=== PATIENT | male | born 1960 | race Caucasian/White ===

== ENCOUNTER → 2023-11-02 | Outpatient (CLI) | payer BC | END | disposition home or self-care (01) | LOC: EDBD 09-20 15:30 → SHCH 08:07 | PROVIDERS: ATTEND Internal Medicine Cardiovascular Disease | DX: I08.0 Rheumatic disorders of both mitral and aortic valves (principal); R01.1 Cardiac murmur, unspecified | CPT/HCPCS: 93306 ==

== ENCOUNTER → 2024-10-06 | Outpatient (CLI) | payer BC ==
[2024-10-06 12:18] LABS: BASOPHILS # (AUTO) 0.05 K/uL (0.00-0.20); BASOPHILS % (AUTO) 0.5 % (0.0-5.0); EOSINOPHILS % (AUTO) 2.1 % (0.0-8.0); IMMATURE GRANULOCYTE ABSOLUTE 0.04 K/uL (0-1); LYMPHOCYTES # (AUTO) 3.3 K/uL (1.0-4.8); MEAN CORPUSCULAR HEMOGLOBIN 28.6 pg (27.0-33.0); MEAN CORPUSCULAR HGB CONC 32.7 g/dL (32.0-36.0); MEAN CORPUSCULAR VOLUME 87.7 fL (79-99); MONOCYTES # (AUTO) 0.6 K/uL (0.1-1.0); MONOCYTES % (AUTO) 6.2 % (3.0-13.0); NEUTROPHILS # (AUTO) 5.5 K/uL (1.8-7.7); NEUTROPHILS % (AUTO) 56.8 % (40.0-77.0); PLATELET COUNT (AUTO) 289 K/uL (130-400); RED BLOOD CELL COUNT(AUTO) 5.59 MIL/uL (4.50-6.20); RED CELL DISTRIBUTION WIDTH 14.5 % (11.0-15.5); WHITE BLOOD COUNT (AUTO) 9.6 K/uL (4.8-10.8)
[2024-10-06 12:38] LABS: CREATININE 0.9 mg/dL (0.5-1.3); MAGNESIUM 2.1 mg/dL (1.80-2.40); PHOSPHORUS 2.6 mg/dL (2.5-4.9); POTASSIUM 3.9 mmol/L (3.5-5.1); THYROID STIMULATING HORMONE 0.66 uIU/mL (0.36-3.74)
== END | disposition home or self-care (01) ==
LOC: LAB 09:37
PROVIDERS: ATTEND Internal Medicine Cardiovascular Disease
DX: I25.10 Atherosclerotic heart disease of native coronary artery without angina pectoris (principal)
CPT/HCPCS: 36415; 80048; 80061; 83735; 84100; 84439; 84443; 85025

== ENCOUNTER → 2024-10-07 | Outpatient (CLI) | payer BC ==
[2024-10-07] MEDS: REGADENOSON 0.4 MG/5 ML PF SYG IVP ONE (14:32)
--- NOTE | 2024-10-10 00:27 | HMCSR ---
APPROVED REPORT Height: 6 ft 2in Weight: 261 lbs TEST INDICATIONS CAD The imaging protocol used to acquire images was Rest Tc-99m/stress Tc-99m 1 day Consent: The procedure was explained and understood by the patient. Informerd consent was witnessed Carmen Bobby RN First, low dose rest was performed then high dose stress. RESTING DATA: The resting ekg shows: NSR Rest SPECT myocardial perfusion imaging was performed in supine position 67 minutes following the int ravenous injection of 10 mCi of Tc-99 Sestamibi. Time of rest injection: 09:13: Date: 10/07/2024 Time of rest imagin:20: Date: 10/07/2024 PHARMACOLOGIC STRESS: Pharmacologic stress test was performed by injecting regadenoson 0.4 mg IV push followed by the intra venous injection of 31.3 mCi of Tc-99 Sestamibi. Time of stress injection: 10:53: Date: 10/07/2024 Time of stress imagin:06: Date: 10/07/2024 Heart Rate at time of stress injection: 57 bpm. Gated Stress SPECT was performed 73 minutes after stress injection. The images were gated to evaluate regional wall motion and calculate left ventricular ejection fracti on. STRESS DETAILS Reason for Termination: Infusion complete Stress Symptoms: No chest pain or symptoms Max HR Achieved: 76 bpm % of APMHR Achieved: 48 Max Blood Pressure: 136/70 mmHg Stress ECG: NSR Arrhythmia: No. ST Change: No. Study quality was fair. Artifact: diaphragmatic artifact, motion artifact, increased GI uptake LEFT VENTRICLE Size: The left ventricular size is normal. Systolic Function:The left ventricular systolic function is normal. Wall Motion: No regional wall motion abnormalities noted. LV PERFUSION There is a moderate-sized, mild intensity, fixed perfusion defect seen in the mid/apical inferior and inferolateral wall. No obvious TID. RV Size/Shape The right ventricle was not well-visualized IMPRESSION Stress ECG Summary: Nondiagnostic Conclusion Abnormal Lexiscan stress test There is a moderate-sized, mild intensity, fixed perfusion defect seen in the mid/apical inferior and inferolateral wall. No obvious TID. The left ventricular size is normal. No regional wall motion abnormalities noted. The left ventricula r systolic function is grossly normal. Post-stress LVEF > 55%. Stress ECG Summary: Nondiagnostic The above-mentioned findings are thought to be artifact induced with diaphragmatic attenuation and mo tion artifact both contributing. With that being said the findings indicate the patient is a low ris k for cardiovascular events. Clinical correlation is advised.
== END | disposition home or self-care (01) ==
LOC: SHCH 08:58
PROVIDERS: ATTEND Internal Medicine Cardiovascular Disease
DX: I25.10 Atherosclerotic heart disease of native coronary artery without angina pectoris (principal)
CPT/HCPCS: 78452; 93017; J2785; A9500 ×2

== ENCOUNTER 2025-07-24 06:14 | Day surgery (SDC) | payer BC ==
[2025-07-21 11:15] VITALS: BP 118/65; PULSE 64; RESP 13; TEMP 97.5
[2025-07-21 11:21] LABS: IMMATURE GRANULOCYTE ABSOLUTE 0.05 K/uL (0-1); NUCLEATED RED BLOOD CELLS 0.0 % (0.0-0.19); PLATELET COUNT (AUTO) 271 K/uL (130-400); RED BLOOD CELL COUNT(AUTO) 5.33 MIL/uL (4.50-6.20); RED CELL DISTRIBUTION WIDTH 13.6 % (11.0-15.5); WHITE BLOOD COUNT (AUTO) 8.3 K/uL (4.8-10.8)
[2025-07-21 11:23] LABS: GLUCOSE, URINE (UA) NEGATIVE (NEGATIVE); LEUKOCYTE ESTERASE ,URINE NEGATIVE Leu/uL (NEGATIVE); NITRATE,URINE NEGATIVE (NEGATIVE); OCCULT BLOOD,URINE NEGATIVE (NEGATIVE)
[2025-07-21 11:25] LABS: ADD UA MICROSCOPIC YES; APPEARANCE,URINE HAZY (CLEAR)
[2025-07-21 11:29] LABS: CREATININE 1.0 mg/dL (0.5-1.3); GLOMERULAR FILTR. RATE CALC 85.0 mL/min (>90); GLUCOSE,RANDOM 102.0 mg/dL (70-105); SODIUM SERUM 141.0 mmol/L (136-145); UREA NITROGEN, BLOOD 18.0 mg/dL (7-18)
[2025-07-21 11:37] LABS: INR 1.06 (0.85-1.15)
--- NOTE | 2025-07-21 12:35 | EKG ---
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
--- NOTE | 2025-07-22 01:54 | HMCIMG ---
EXAM: XR Chest, 1 View. CLINICAL HISTORY: Preoperative assessment. COMPARISON: None provided. FINDINGS: LUNGS: The lungs are clear. No consolidation. PLEURAL SPACES: No pleural effusion or pneumothorax. HEART: The heart size is normal. BONES: Right dorsal scoliosis and spondylosis. Right acromioclavicular osteoarthritis. IMPRESSION: 1. No acute cardiopulmonary process 2. Right dorsal scoliosis and spondylosis 3. Right acromioclavicular osteoarthritis /Makinen
[~2025-07-24] VITALS: Ht 162.6 cm; Wt 120.7 kg
[2025-07-24] VITALS (9 sets, daily range): BP systolic 121–151; BP diastolic 61–91; PULSE 51–62; RESP 14–17; TEMP 97.1–97.2
[~2025-07-24 06:14] MED LIST: AMLO-513 PO; ASPI-1443 PO; CHLOROPHYLL PO; METO-408 PO; NITR0.4T50 SL; PRED20TA3 PO; RANO500T6 PO; TURM500C13 PO
[2025-07-24] MEDS ORDERED: IOHEXOL 350 MG/ML 100ML INFUS..BTL IV ONE (07:10)
[2025-07-24] MEDS ORDERED: LIDOCAINE HCL 400MG/20ML VIAL ONE (07:10)
[2025-07-24] MEDS ORDERED: HEParin-NS 1,000 UNIT/500 ML 1,000 ML IV ONE (07:11)
[2025-07-24] MEDS ORDERED: NITROGLYCERIN 50MG VIAL ONE (07:12)
[2025-07-24] MEDS ORDERED: MIDAZOLAM HCL 1 MG/ML 2ML VIAL ONE ×2 (07:51→08:52)
[2025-07-24] MEDS ORDERED: GLUCAGON 1MG KIT 1 MG ML IM PRN (09:30)
[2025-07-24] MEDS ORDERED: 0.9%NACL 1000ML 1,000 ML IV SCH (09:30)
[2025-07-24] MEDS ORDERED: DEXTROSE 50%-WATER 50 ML DISP.SYRIN IV PRN (09:30)
--- NOTE | 2025-07-24 09:39 | PRN ---
PROCEDURE NOTE Indications: Chest pain, CCS III symptoms, on GDMT Abnormal coronary CTA done on 04/28/2024, 50-70% stenosis in the mid LAD (FFR of the LAD was performed and was deemed to be hemodynamically significant 0.72) Abnormal Lexiscan stress test done on 10/2024 HTN HLP Takotsubo cardiomyopathy diagnosed in 2009, resolved Normal left ventricle systolic function (LVEF 55-60% by echocardiogram done on 11/02/2023) Procedures: LHC, coronary angiogram, IFR of the LAD and RCA, femoral angiogram Introduction: After informed written consent was obtained, the patient was brought to the Catheterization Lab in the usual fasting state. Following sterile prep and drape, a time out was performed, then moderate sedation was administered, 1mg of Versed and 50mcg of Fentanyl, then 1% Lidocaine was infiltrated into the right femoral groin. Using a Modified Seldinger technique, a 6Fr Sheath was inserted into the right common femoral artery. While under fluoroscopic guidance, diagnostic coronary catheters were advanced over a wire into the central circulation where they were aspirated, flushed and placed to pressure monitoring, once the wire was removed. Coronary Angio: The left and right coronary arteries were engaged with appropriate catheters and angiography was performed under continuous pressure monitoring. Left Heart Catheterization: A JR4 catheter was inserted into the LV and the pressure was recorded, then the catheter was removed from the LV. Cardiac Findings: Right dominant system LM: Large caliber vessel with mild luminal irregularities. The vessel bifurcates into the LAD and LCX. LAD: Medium caliber vessel with 50% stenosis in the proximal LAD. There are serial lesions each with 70% stenosis, in the mid LAD. [place] 3 blood flow distally Diagonal 1: Medium caliber vessel with 40% stenosis in the ostial segment of the vessel LCx: Large caliber vessel with 95% stenosis in the mid LCX. [place] 3 blood flow distally OM1: Medium caliber vessel with 70-80% stenosis in the proximal segment of the vessel OM2: Medium caliber vessel with mild luminal irregularities RCA: Large caliber vessel with 30-40% stenosis in the proximal RCA, 30% stenosis in the distal RCA. RPDA: Medium caliber vessel with serial lesions each with 80% stenosis in the proximal and mid segments of the vessel RPLV: Medium caliber vessel with mild luminal irregularities LVEDP: 16mmHg Medications given: Versed 3mg, Fentanyl 75mcg, nitroglycerin 200mcg Coronary Intervention: Guide catheter: JL4, JR4 Guidewire: IFR wire After reviewing the above-mentioned findings the decision was made to further evaluate the LAD. The patient was administered heparin 75 units/kg x1 dose. We then advanced the JL4 guide catheter into the ostium of the left main. We then advanced the IFR wire across the areas stenosis and performed IFR of the mid LAD. The lesion was deemed to be hemodynamically significant (0.88 and 0.87). The IFR wire and JL4 guide catheter were then removed. We then advanced a JR4 guide catheter into the ostium of the RCA. We then advanced the IFR wire across the areas stenosis and into the distal RCA and performed IFR of the proximal RCA. The lesion was deemed to be hemodynamically insignificant (0.98). The IFR wire and JR4 guide catheter were then removed. The patient tolerated the procedure well and without issue. Complications: None Conscious Sedation Monitoring: Under my direct order and supervision, medication for moderate conscious sedation was administered by the nursing staff and the patients level of consciousness and physiological status was monitored by an independent trained nurse. Closure of Access Site: After the case completed the sheath was pulled and a 6Fr Angioseal was deployed in the right common femoral artery without complication. Conclusion: 1. Chest pain, CCS III symptoms 2. 2V + branch vessel CAD (lad, LCX, OM1, and RPDA) 3. IFR of the mid LAD, hemodynamically significant (0.88 and 0.87), which correlates with FFR of the LAD that was performed on 04/28/2024 4. IFR of the proximal RCA, hemodynamically insignificant (0.98) 5. Frequent PVCs 6. HTN Recommendation: 1. Continue goal-directed medical therapy 2. 4 hours of bedrest 3. Groin precautions 4. Start NS at 100 mL/hour x3 hours. 5. We will refer the patient two CT surgery for CABG evaluation (to be done as outpatient) 6. No driving for the next 48 hours. 7. No heavy lifting or strenuous exercise for the next two weeks. 8. Please have the patient follow up with Dr. Silver in one-week. SALTY SILVER MD Jul 24, 2025 09:39
--- NOTE | 2025-07-24 13:10 | NUR ---
BOTH PT AND DAUGHTERS GIVEN VERBAL AND WRITTEN DISCHARGE INSTRUCTIONS IV REMOVED SITE ASYMPTOMATIC. PT TAKEN OUT VIA WHEELCHAIR DAUGHTER DRIVING.
== END 2025-07-24 13:15 | disposition home or self-care (01) ==
LOC: DAH 06:14
PROVIDERS: ATTEND Internal Medicine Cardiovascular Disease
DX: R07.9 Chest pain, unspecified (principal); I25.118 Atherosclerotic heart disease of native coronary artery with other forms of angina pectoris; I45.4 Nonspecific intraventricular block; M19.011 Primary osteoarthritis, right shoulder; R93.1 Abnormal findings on diagnostic imaging of heart and coronary circulation; N52.1 Erectile dysfunction due to diseases classified elsewhere; I49.3 Ventricular premature depolarization; N40.1 Benign prostatic hyperplasia with lower urinary tract symptoms; E78.5 Hyperlipidemia, unspecified; I49.1 Atrial premature depolarization; M47.9 Spondylosis, unspecified; M41.9 Scoliosis, unspecified; Z79.82 Long term (current) use of aspirin; Z96.641 Presence of right artificial hip joint; Z98.84 Bariatric surgery status; Z79.899 Other long term (current) drug therapy
CPT/HCPCS: 80048; 83880; 85025; 85610; 85730; 81001; 36415; 71045; 93005; 93458; 93571; 93572; 99156; 99157 ×3; 85347; C1887 ×2; C1894 ×2; C1760; C1769; Q9965; J3010; J3490 ×2; J1644 ×2; J2250 ×2; Q9967; A4215; A4221; A4663; A4216; A4606; A4223 ×2; A4222